=== PATIENT | female | born 1980 | race Two or more races ===

== ENCOUNTER 2017-01-19 12:17 | Emergency (ER) | payer MEDICAID ==
[~2017-01-19] VITALS: Ht 162.6 cm; Wt 60.3 kg
[~2017-01-19 12:17] MED LIST: FLUO10CA13 PO; HYDR-3307 PO; ZOLP10TA PO
[2017-01-19] MEDS ORDERED: AZITHROMYCIN 500 MG TABLET PO ONE (14:00)
[2017-01-19] MEDS ORDERED: CEFTRIAXONE 250 MG IM ONE (14:00)
[2017-01-19] MEDS ORDERED: LIDOCAINE 1%, 20ML ONE (15:06)
[2017-01-19] MEDS ORDERED: CEFTRIAXONE 250 MG ONE (15:06)
[2017-01-19] MEDS ORDERED: AZITHROMYCIN 250 MG TABLET ONE (15:07)
[2017-01-19 15:28] VITALS: BP 127/83
== END 2017-01-19 15:32 | disposition home or self-care (01) ==
LOC: ED 15:00
DX: A64 Unspecified sexually transmitted disease (principal); R10.2 Pelvic and perineal pain
CPT/HCPCS: 87210; 87491; 87591; 87808; 96372; 99284; J0696

== ENCOUNTER 2019-07-30 10:49 | Observation (INO) | payer MEDICAID ==
[~2019-07-30] VITALS: Ht 160 cm; Wt 62.0 kg
[~2019-07-30 10:49] MED LIST changes: +HYDR-3246 PO; -HYDR-3307 PO
--- NOTE | 2019-07-30 11:00 | NUR ---
PT BIB [facility]. "I TOOK TOO MUCH MDMA LAST NIGHT AT ABOUT 0100. I ATE SOME AND SNORTED SOME. I HAVE HAVING TERRIBLE ANXEITY THIS MORNING. I DID NO SLEEP LAST NIGHT. I VANNOT BREATH" PT IS 100% ON ROOM AIR. PT IS CONNECTED TO MUSIC LIBRARIAN AND PULSE OX. PT REFUSED TO CHANGE OUT OF SWEATSHIRT.
[2019-07-30] MEDS ORDERED: PROMETHAZINE 25 MG/ML, 1ML ONE (11:09)
[2019-07-30 11:23] LABS: MEAN CORPUSCULAR HEMOGLOBIN 32.4 pg (27.0-34.8); MEAN CORPUSCULAR HGB CONC 33.7 g/dL (32.4-35.8); MEAN CORPUSCULAR VOLUME 96.1 fL (80-100); MEAN PLATELET VOLUME 7.8 fL (7.4-10.4); PLATELET COUNT 297 x10^3/uL (130-400); RED BLOOD COUNT 4.34 x10^6/uL (3.82-5.3); RED CELL DISTRIBUTION WIDTH 13.1 % (9.6-15.2)
[2019-07-30] MEDS ORDERED: PROMETHAZINE 25 MG/ML, 1ML IM ONE (11:30)
[2019-07-30 11:36] LABS: ALBUMIN 4.2 g/dL (3.4-5.0); ANION GAP 17 mmol/L (5-15); CALCIUM 9.3 mg/dL (8.5-10.1); CHLORIDE 92 mmol/L (98-107); CREATININE 1.06 mg/dL (0.55-1.02)
[2019-07-30 11:44] LABS: MD YES
[2019-07-30 11:45] LABS: BAND#(MANUAL) 0.81 x10^3/uL; BANDS%(MANUAL) 4 % (0-7); LYMPH#(MANUAL) 1.02 x10^3/uL (1-3.4); LYMPHS% (MANUAL) 5 % (22-44); MONOS#(MANUAL) 0.81 x10^3/uL (0.3-2.7); MONOS% (MANUAL) 4 % (2-9); SEG#(MANUAL) 17.66 x10^3/uL (1.8-6.8); SEGS% (MANUAL) 87 % (42-75)
[2019-07-30 11:46] LABS: <PLATELET ESTIMATE> ADEQUATE; <PLT MORPHOLOGY> NORMAL PLT MORPH; <RBC MORPHOLOGY> NORMAL
--- NOTE | 2019-07-30 12:03 | NUR ---
PT AMBUALTED TO BATHROOM WITH A STEADY GATE
[2019-07-30 12:20] LABS: MICROSCOPIC INDICATED
[2019-07-30] MEDS ORDERED: SODIUM CHLORIDE 0.9% 1,000 ML IV ONE (13:00)
[2019-07-30] MEDS ORDERED: POTASSIUM CHLORIDE 40 MEQ in SODIUM CHLORIDE 0.9% 500 ML IV ONE (13:00)
--- NOTE | 2019-07-30 13:30 | NUR ---
PT AMBULATED TO BATHROOM WITH STEADY GATE
--- NOTE | 2019-07-30 13:57 | NUR ---
ASSUMED CARE OF PATIENT. BEDSIDE REPORT GIVEN FROM MELISSA NARAYANAN
[2019-07-30] MEDS ORDERED: ONDANSETRON 2MG/ML, 2ML IVPush PRN (14:00)
[2019-07-30] MEDS ORDERED: BACLOFEN 10 MG TABLET PO PRN (14:00)
[2019-07-30] MEDS ORDERED: ONDANSETRON ODT 4 MG PO PRN (14:00)
[2019-07-30] MEDS ORDERED: LORazepam 2 MG/ML, 1ML IVPush ONE (14:00)
[2019-07-30] MEDS ORDERED: hydrALAzine 20 MG/ML, 1ML IVPush PRN (14:00)
[2019-07-30] MEDS ORDERED: ACETAMINOPHEN 325 MG TABLET PO PRN (14:00)
[2019-07-30] MEDS ORDERED: LORazepam 2 MG/ML, 1ML ONE (14:01)
--- NOTE | 2019-07-30 14:01 | NUR ---
REPORT GIVEN TO MELISSA ROQUE
--- NOTE | 2019-07-30 14:40 | NUR ---
PT AMBULATED TO BATHROOM WITH ASSISTANCE. PT FEELING MORE CALM. VS STABLE. HOG SAWYER ON. NSR NOTED. CALL LIGHT IN PLACE. WILL CONTINUE TO MONITOR.
[2019-07-30] MEDS ORDERED: MAGNESIUM SULFATE PMX 2GM/50ML 50 ML IV ONE (15:30)
[2019-07-30] MEDS ORDERED: LORazepam 2 MG/ML, 1ML IVPush PRN (16:00)
--- NOTE | 2019-07-30 16:03 | NUR ---
AMBULATED PT TO BATHROOM. PT NOW RESTING IN ROOM. BONE CHAR PULLER ON. NSR NOTED. VS STABLE. CALL LIGHT IN PLACE. WILL CONTINUE TO MONITOR.
[2019-07-30 16:24] VITALS: BP 119/78
[2019-07-30] MEDS: morphine SULFATE 10 MG/ML, 1ML IVPush PRN ×2 (16:40→23:22)
[2019-07-30] MEDS: GABAPENTIN 300 MG CAPSULE PO PRN (18:10)
[2019-07-30] MEDS: HYDROXYZINE PAMOATE 50MG CAP PO PRN (18:38)
[2019-07-30] MEDS: NS + 20MEQ KCL 1,000 ML IV SCH (18:55)
[2019-07-30 19:41] VITALS: BP 110/72
[2019-07-30] MEDS: CEFTRIAXONE PMX 1GM/50ML 50 ML IV SCH (20:22)
[2019-07-31 01:10] VITALS: BP 106/66
[2019-07-31] MEDS: NS + 20MEQ KCL 1,000 ML IV SCH ×3 (03:39→19:52)
[2019-07-31] MEDS: KETOROLAC 30 MG/1 ML IV PRN ×2 (05:41→19:20)
[2019-07-31 06:06] LABS: BASOPHILS % (AUTO) 0 % (0-1); EOSINOPHILS % (AUTO) 0 % (1-7); LYMPHOCYTES # (AUTO) 0.82 x10^3/uL (1-3.4); LYMPHOCYTES % (AUTO) 7 % (22-44); MD NO; MEAN CORPUSCULAR HEMOGLOBIN 32.1 pg (27.0-34.8); MEAN CORPUSCULAR HGB CONC 33.7 g/dL (32.4-35.8); MEAN CORPUSCULAR VOLUME 95.3 fL (80-100); MONOCYTES # (AUTO) 0.54 x10^3/uL (0.2-0.8); MONOCYTES % (AUTO) 5 % (2-9); NEUTROPHILS # (AUTO) 9.68 x10^3/uL (1.8-6.8); NEUTROPHILS % (AUTO) 88 % (42-75); PLATELET COUNT 225 x10^3/uL (130-400); RED BLOOD COUNT 4.03 x10^6/uL (3.82-5.3); RED CELL DISTRIBUTION WIDTH 13.3 % (9.6-15.2)
[2019-07-31 06:13] LABS: ANION GAP 4 mmol/L (5-15); CALCIUM 8.4 mg/dL (8.5-10.1); CHLORIDE 108 mmol/L (98-107)
[2019-07-31 06:28] VITALS: BP 103/71
[2019-07-31 06:28] LABS: CREATININE 0.69 mg/dL (0.55-1.02)
[2019-07-31] MEDS: GABAPENTIN 300 MG CAPSULE PO PRN (08:48)
[2019-07-31] MEDS: HYDROXYZINE PAMOATE 50MG CAP PO PRN (11:03)
[2019-07-31 12:02] VITALS: BP 103/67
[2019-07-31 12:32] LABS: AMPHETAMINE SCREEN, URINE Positive (Negative); BARBITURATE SCREEN, URINE Negative (Negative); BENZODIAZEPINE SCREEN, URINE Negative (Negative); CANNABINOID SCREEN, URINE Negative (Negative); COCAINE SCREEN, URINE Negative (Negative); METHADONE SCREEN, URINE Negative (Negative); OPIATE SCREEN, URINE Positive (Negative)
[2019-07-31] MEDS: CEFTRIAXONE PMX 1GM/50ML 50 ML IV SCH (14:19)
[2019-07-31] MEDS ORDERED: TRAZODONE 50MG TABLET PO PRN (16:00)
[2019-07-31 19:35] VITALS: BP 96/55
[2019-08-01 01:12] VITALS: BP 103/58
[2019-08-01] MEDS: NS + 20MEQ KCL 1,000 ML IV SCH (03:58)
[2019-08-01 06:32] LABS: BASOPHILS # (AUTO) 0.02 x10^3/uL (0-0.1); BASOPHILS % (AUTO) 0 % (0-1); EOSINOPHILS # (AUTO) 0.08 x10^3/uL (0-0.4); EOSINOPHILS % (AUTO) 2 % (1-7); LYMPHOCYTES # (AUTO) 1.83 x10^3/uL (1-3.4); LYMPHOCYTES % (AUTO) 42 % (22-44); MD NO; MEAN CORPUSCULAR HEMOGLOBIN 32.7 pg (27.0-34.8); MEAN CORPUSCULAR HGB CONC 33.8 g/dL (32.4-35.8); MEAN CORPUSCULAR VOLUME 96.9 fL (80-100); MEAN PLATELET VOLUME 8.7 fL (7.4-10.4); MONOCYTES # (AUTO) 0.35 x10^3/uL (0.2-0.8); MONOCYTES % (AUTO) 8 % (2-9); NEUTROPHILS # (AUTO) 2.12 x10^3/uL (1.8-6.8); NEUTROPHILS % (AUTO) 48 % (42-75); PLATELET COUNT 167 x10^3/uL (130-400); RED BLOOD COUNT 3.46 x10^6/uL (3.82-5.3); RED CELL DISTRIBUTION WIDTH 13.5 % (9.6-15.2)
[2019-08-01 06:38] LABS: ALANINE AMINOTRANSFERASE 34 U/L (12-78); ALBUMIN 2.7 g/dL (3.4-5.0); ANION GAP 5 mmol/L (5-15); CALCIUM 7.9 mg/dL (8.5-10.1); CHLORIDE 114 mmol/L (98-107); CREATININE 0.58 mg/dL (0.55-1.02)
[2019-08-01 06:40] LABS: ALKALINE PHOSPHATASE 66 U/L (45-117); BILIRUBIN,TOTAL 0.2 mg/dL (0.2-1.0); TOTAL PROTEIN 6.1 g/dL (6.4-8.2)
[2019-08-01 07:12] VITALS: BP 103/70
[2019-08-01] MEDS ORDERED: FLUOXETINE HCL 20 MG CAPSULE PO SCH (09:00)
[2019-08-01] MEDS ORDERED: CEFDINIR 300 MG CAPSULE PO SCH (09:00)
[2019-08-01] MEDS ORDERED: FLUO20CA23 PO (11:04)
[2019-08-01] MEDS ORDERED: CEFD300C37 PO (11:04)
[2019-08-01 12:06] VITALS: BP 105/61
== END 2019-08-01 16:35 | disposition home or self-care (01) ==
LOC: ED 12:10 → INTOOBSV 12:52 → EDIP 12:52 → OBSVTOIN 12:52 → 4EST 16:15
PROVIDERS: ADMIT Hospitalist; ATTEND Internal Medicine
DX: R65.10 Systemic inflammatory response syndrome (SIRS) of non-infectious origin without acute organ dysfunction (principal); F41.8 Other specified anxiety disorders; F33.1 Major depressive disorder, recurrent, moderate; R11.2 Nausea with vomiting, unspecified; R00.0 Tachycardia, unspecified; N17.9 Acute kidney failure, unspecified; E87.1 Hypo-osmolality and hyponatremia; E87.6 Hypokalemia; R20.2 Paresthesia of skin; D72.829 Elevated white blood cell count, unspecified; F19.10 Other psychoactive substance abuse, uncomplicated; E83.42 Hypomagnesemia; N39.0 Urinary tract infection, site not specified; Z72.9 Problem related to lifestyle, unspecified; Z79.899 Other long term (current) drug therapy
CPT/HCPCS: 36415; 71045; 74018; 80048; 80053; 80307; 81001; 82040; 83735; 84145; 84443; 84703; 85025; 87040; 87086; 87491; 87591; 87806; 93005; 96365; 96366; 96368; 96372; 96375; 96376; 99285; G0378; J0696; J1885; J2060; J2270; J2405; J2550; J3475; J3480; J7040; 96374; G0475

== ENCOUNTER → 2020-05-14 | Outpatient (CLI) | payer MEDICAID ==
[~2020-05-14] MED LIST changes: +CEFD300C37 PO; +FLUO20CA23 PO; -HYDR-3246 PO; +HYDR-3248 PO
== END | disposition home or self-care (01) ==
LOC: STAR 15:52
PROVIDERS: ATTEND Nurse Practitioner Psychiatric/Mental Health
DX: Z01.818 Encounter for other preprocedural examination (principal); Z78.9 Other specified health status
CPT/HCPCS: 93005

== ENCOUNTER 2020-06-24 09:25 | Emergency (ER) | payer MEDICAID ==
[~2020-06-24] VITALS: Ht 157.5 cm; Wt 72.7 kg
--- NOTE | 2020-06-24 09:32 | NUR ---
Pt noted as ambulatory to room from triage without gait disturbance noted. quality control technician instructing pt on proper clean catch procedure and need for changing into gown when she returns from the restroom.
--- NOTE | 2020-06-24 09:38 | NUR ---
Pt has small amount of clear, dark yellow uop in specimen cup present at bedside and changing into gown now. Warm blankets provided and call light in reach. property assessment monitor completed and awaiting PA/MD exam.
--- NOTE | 2020-06-24 09:46 | NUR ---
UA sample sent to lab. PA at bedside for exam.
--- NOTE | 2020-06-24 10:38 | NUR ---
UA results still pending at this time. No acute changes noted.
[2020-06-24 10:44] LABS: MICROSCOPIC NOT IND
--- NOTE | 2020-06-24 11:01 | NUR ---
UA results reviewed. Chart marked for recheck. No culture indicated from sample. Pt notified.
--- NOTE | 2020-06-24 11:06 | NUR ---
PA and RN at bedside to discuss findings, plan of care, and expected timeframes of planned tests.
[2020-06-24 11:20] LABS: BASOPHILS % (AUTO) 1 % (0-1); EOSINOPHILS % (AUTO) 3 % (1-7); LYMPHOCYTES % (AUTO) 27 % (22-44); MEAN CORPUSCULAR HEMOGLOBIN 32.2 pg (27.0-34.8); MEAN CORPUSCULAR HGB CONC 33.6 g/dL (32.4-35.8); MEAN PLATELET VOLUME 8.4 fL (7.4-10.4); MONOCYTES % (AUTO) 9 % (2-9); NEUTROPHILS % (AUTO) 60 % (42-75); PLATELET COUNT 210 x10^3/uL (130-400); RED BLOOD COUNT 4.14 x10^6/uL (3.82-5.3); RED CELL DISTRIBUTION WIDTH 12.9 % (9.6-15.2)
[2020-06-24 11:22] LABS: MD NO
[2020-06-24 11:31] LABS: ALBUMIN 3.9 g/dL (3.4-5.0); ANION GAP 6 mmol/L (5-15); CALCIUM 8.6 mg/dL (8.5-10.1); CHLORIDE 110 mmol/L (98-107); CREATININE 0.68 mg/dL (0.55-1.02)
--- NOTE | 2020-06-24 11:43 | NUR ---
Ldab results reviewed. US tech at bedside.
--- NOTE | 2020-06-24 11:59 | NUR ---
US tech chaperoning provided for transvaginal scan. Pt tolerated well and provided washcloth for in the restroom to clean up gel now.
--- NOTE | 2020-06-24 12:23 | NUR ---
Pt aware of expected timeframe for radiologist reading of US and awaiting that and MD review before they come back to discuss results and plan of care.
[2020-06-24 12:57] VITALS: BP 118/71
== END 2020-06-24 12:59 | disposition home or self-care (01) ==
LOC: ED 09:47
DX: R30.0 Dysuria (principal)
CPT/HCPCS: 36415; 76830; 80048; 81003; 82040; 85025; 99284

== ENCOUNTER 2020-08-18 13:20 | Emergency (ER) | payer MEDICAID ==
[~2020-08-18] VITALS: Ht 157.5 cm; Wt 71.1 kg
--- NOTE | 2020-08-18 13:38 | NUR ---
PT AMBULATED TO ROOM FROM TRIAGE. PT STATED THAT SHE GOT A TUMMY TUCK IN [place] 1 MONTH AGO AN NOTICED SOME DISCHARGE COMING FROM HER INCISION. PT STATED THAT SHE HAS BEEN IN SEV[place] PAIN THE PAST COUPLE DAYS. SMALL AREA OF REDNESS AND DISCHAGE NOTED ON INCISION ON LOWER ABDOMEN. PT DENIES ANY FEVER, N/V/D.
[2020-08-18 14:30] VITALS: BP 137/78
[2020-08-18] MEDS ORDERED: OXYcodone/APAP 5/325MG TABLET PO ONE (14:30)
--- NOTE | 2020-08-18 14:30 | NUR ---
PT RESTING COMFORTABLY IN [facility]. CALL LIGHT WITHIN REACH.
[2020-08-18] MEDS ORDERED: OXYcodone/APAP 5/325MG TABLET ONE (14:31)
--- NOTE | 2020-08-18 15:33 | NUR ---
DISCHARGE INSTRUCTIONS REVIEWED WITH PT. ALL QUESTIONS ANSWERED AT THIS TIME. PT AWARE THAT SHE SHOULD NOT DRIVE AFTER NARCOTIC ADMINISTRATION. PT TO HAVE FRIEND PICK HER UP FROM ER.
== END 2020-08-18 15:36 | disposition home or self-care (01) ==
LOC: ED 14:29
DX: Z48.01 Encounter for change or removal of surgical wound dressing (principal); Z48.02 Encounter for removal of sutures
CPT/HCPCS: 99283

== ENCOUNTER 2020-09-09 11:37 | Emergency (ER) | payer MEDICAID ==
[~2020-09-09] VITALS: Ht 157.5 cm; Wt 69.0 kg
[2020-09-09 12:25] LABS: BASOPHILS % (AUTO) 1 % (0-1); EOSINOPHILS % (AUTO) 2 % (1-7); LYMPHOCYTES % (AUTO) 28 % (22-44); MEAN CORPUSCULAR HEMOGLOBIN 33.4 pg (27.0-34.8); MEAN CORPUSCULAR HGB CONC 34.1 g/dL (32.4-35.8); MEAN PLATELET VOLUME 8.8 fL (7.4-10.4); MONOCYTES % (AUTO) 9 % (2-9); NEUTROPHILS % (AUTO) 61 % (42-75); PLATELET COUNT 250 x10^3/uL (130-400)
[2020-09-09 12:30] LABS: ALBUMIN 3.6 g/dL (3.4-5.0); ANION GAP 6 mmol/L (5-15); CALCIUM 8.1 mg/dL (8.5-10.1); CHLORIDE 112 mmol/L (98-107)
--- NOTE | 2020-09-09 13:47 | NUR ---
Labs reviewed by salesperson china and glassware at this time. Awaiting UA sample to send and room in ED to bring pt to. laundry tech to take VS again in waiting room and report results back to RN.
[2020-09-09 14:01] VITALS: BP 117/81
--- NOTE | 2020-09-09 14:20 | NUR ---
TO [facility] FROM LOBBY
[2020-09-09 14:56] LABS: MICROSCOPIC NOT IND
== END 2020-09-09 15:10 | disposition home or self-care (01) ==
LOC: ED 14:40
DX: R10.33 Periumbilical pain (principal); R10.30 Lower abdominal pain, unspecified
CPT/HCPCS: 36415; 80048; 81003; 82040; 85025; 99283

== ENCOUNTER 2020-12-03 16:47 | Emergency (ER) | payer MEDICAID ==
[~2020-12-03] VITALS: Ht 157.5 cm; Wt 70.5 kg
[2020-12-03 18:00] VITALS: BP 133/94
[2020-12-03 18:24] LABS: MICROSCOPIC NOT IND
[2020-12-03 18:34] LABS: BASOPHILS % (AUTO) 1 % (0-1); EOSINOPHILS % (AUTO) 2 % (1-7); LYMPHOCYTES % (AUTO) 28 % (22-44); MEAN CORPUSCULAR HEMOGLOBIN 31.7 pg (27.0-34.8); MEAN CORPUSCULAR HGB CONC 34.2 g/dL (32.4-35.8); MEAN PLATELET VOLUME 8.4 fL (7.4-10.4); MONOCYTES % (AUTO) 6 % (2-9); NEUTROPHILS % (AUTO) 63 % (42-75); PLATELET COUNT 243 x10^3/uL (130-400); RED BLOOD COUNT 4.13 x10^6/uL (3.82-5.3); RED CELL DISTRIBUTION WIDTH 13.2 % (9.6-15.2)
[2020-12-03 18:45] LABS: ALBUMIN 3.5 g/dL (3.4-5.0); ANION GAP 4 mmol/L (5-15); CALCIUM 8.7 mg/dL (8.5-10.1); CHLORIDE 105 mmol/L (98-107); CREATININE 0.61 mg/dL (0.55-1.02)
--- NOTE | 2020-12-03 19:37 | NUR ---
Pt ambulatory to room from lobby at this time.
--- NOTE | 2020-12-03 20:07 | NUR ---
PELVIC SET UP READY.
--- NOTE | 2020-12-03 20:26 | NUR ---
DR. CHEUNG AT BEDSIDE FOR EXAM.
[2020-12-03 20:50] LABS: CLUE CELLS PRESENT (NONE SEEN); WET PREP WBCS FEW (FEW)
== END 2020-12-03 21:48 | disposition home or self-care (01) ==
LOC: ED 20:56
DX: N76.0 Acute vaginitis (principal); B96.89 Other specified bacterial agents as the cause of diseases classified elsewhere
CPT/HCPCS: 36415; 80048; 81003; 82040; 84703; 85025; 87210; 87491; 87591; 87808; 99283; 99284